=== PATIENT | female | born 1990 | race Caucasian/White ===

== ENCOUNTER → 2024-05-07 | Outpatient (REF) | payer OTHER | LOC: M PLALAB 13:53 | PROVIDERS: ATTEND Obstetrics & Gynecology | DX: Z34.93 Encounter for supervision of normal pregnancy, unspecified, third trimester (principal) ==

== ENCOUNTER → 2024-05-26 | Outpatient (CLI) | payer BC ==
[~2024-05-26] MED LIST: BACT800T5 PO
== END ==
LOC: M RAD 09:18 → MERGE 09:18
PROVIDERS: ATTEND Obstetrics & Gynecology
DX: O26.843 Uterine size-date discrepancy, third trimester (principal)

== ENCOUNTER → 2024-06-09 | Outpatient (REF) | payer BC, OTHER | LOC: M SFHCWAGY 17:15 | PROVIDERS: ATTEND Obstetrics & Gynecology | DX: Z34.83 Encounter for supervision of other normal pregnancy, third trimester (principal) ==

== ENCOUNTER → 2024-06-14 | Outpatient (REF) | payer BC, OTHER | LOC: M SFHCWAGY 17:06 | PROVIDERS: ATTEND Obstetrics & Gynecology | DX: Z36.89 Encounter for other specified antenatal screening (principal); Z3A.36 36 weeks gestation of pregnancy ==

== ENCOUNTER 2024-07-08 14:01 | Emergency (ER) | payer BC ==
[~2024-07-08] VITALS: Ht 172.7 cm; Wt 106.1 kg
[~2024-07-08 14:01] MED LIST changes: +COLA100C5 PO; +IBUP80TA PO; +PERCOCET PO; +PRENTAB53 PO
[2024-07-08 14:57] LABS: BASO % 0.4 % (0.0-1.0); EOS # 0.1 10^3/uL (0.0-0.5); EOS % 1.7 % (0.0-3.0); HEMATOCRIT 31.8 % (36.0-47.0); HEMOGLOBIN 10.6 g/dl (12.0-15.5); LYMPH # 1.3 10^3/uL (1.5-5.0); LYMPH % 17.5 % (24.0-44.0); MEAN CORPUSCULAR HEMOGLOBIN 29.9 pg (27.0-33.0); MEAN CORPUSCULAR HGB CONC 33.3 g/dl (32.0-36.5); MEAN CORPUSCULAR VOLUME 89.6 fl (80.0-96.0); MONO # 0.4 10^3/uL (0.0-0.8); MONO % 5.6 % (2.0-8.0); NEUTROPHILS # 5.6 10^3/uL (1.5-8.5); NEUTROPHILS % 73.1 % (36.0-66.0); PLATELET COUNT, AUTOMATED 256 10^3/uL (150-450); RED BLOOD COUNT 3.55 10^6/uL (4.00-5.40); WHITE BLOOD COUNT 7.6 10^3/uL (4.0-10.0)
[2024-07-08 15:26] LABS: BLOOD UREA NITROGEN 17 MG/DL (9-23); CALCIUM LEVEL 9.1 MG/DL (8.5-10.1); CARBON DIOXIDE LEVEL 24 MMOL/L (20-31); CHLORIDE LEVEL 106 MMOL/L (98-107); CREATININE FOR GFR 0.72 MG/DL (0.55-1.30); GLOMERULAR FILTRATION RATE > 60.0 (>60); GLUCOSE, FASTING 114 MG/DL (60-100); POTASSIUM SERUM 3.8 MMOL/L (3.5-5.1); SODIUM LEVEL 143 MMOL/L (136-145)
[2024-07-08 15:55] LABS: INR 0.94; PARTIAL THROMBOPLASTIN TIME 27.4 SECONDS (24.8-34.2); PROTHROMBIN TIME 12.9 SECONDS (12.5-14.5)
[2024-07-08 18:16] VITALS: O2SAT 100
[2024-07-08 18:25] VITALS: BP 142/82; TEMP 97.8
== END 2024-07-08 18:40 | disposition home or self-care (01) ==
LOC: M ED 14:01
DX: O72.1 Other immediate postpartum hemorrhage (principal); Z79.1 Long term (current) use of non-steroidal anti-inflammatories (NSAID); Z79.810 Long term (current) use of selective estrogen receptor modulators (SERMs); Z79.899 Other long term (current) drug therapy

== ENCOUNTER → 2025-04-01 | Outpatient (REF) | payer OTHER | LOC: M PLALAB 09:01 | PROVIDERS: ATTEND Obstetrics & Gynecology | DX: Z53.9 Procedure and treatment not carried out, unspecified reason (principal) ==

== ENCOUNTER → 2025-04-01 | Outpatient (CLI) | payer BC ==
[2025-04-01 15:42] LABS: PLATELET COUNT, AUTOMATED 249 10^3/uL (150-450)
[2025-04-01 16:23] LABS: HEPATITIS C VIRUS ABY INDEX < 0.02 INDEX (<0.8); HIV 1&2 SCREEN NEGATIVE (NEGATIVE)
[2025-04-01 16:50] LABS: Trichomonas vaginalis (AMP) NOT DETECTED (NEGATIVE)
[2025-04-01 17:14] LABS: GC DNA AMPLIFICATION NEGATIVE (NEGATIVE)
== END ==
LOC: M PLALAB 13:15
PROVIDERS: ATTEND Obstetrics & Gynecology
DX: O09.521 Supervision of elderly multigravida, first trimester (principal); Z3A.00 Weeks of gestation of pregnancy not specified

== ENCOUNTER 2025-05-23 11:40 | Emergency (ER) | payer BC, OTHER ==
[~2025-05-23] VITALS: Ht 172.7 cm; Wt 108.1 kg
[2025-05-23 12:34] LABS: PLATELET COUNT, AUTOMATED 221 10^3/uL (150-450)
[2025-05-23 13:27] LABS: KETONE, URINE AUTO RFX NEGATIVE (NEGATIVE); LEUKOCYTE ESTERASE UR AUTO RFX NEGATIVE (NEGATIVE); NITRITE, URINE AUTO RFX NEGATIVE (NEGATIVE); RBC, URINE AUTO RFX 0 /HPF (0-3); SQUAM EPITHELIAL CELL UR AURFX 3 /HPF (0-6); WBC, URINE AUTO RFX 1 /HPF (0-3)
[2025-05-23 13:41] VITALS: BP 133/79; TEMP 97.2; O2SAT 98
== END 2025-05-23 13:57 | disposition home or self-care (01) ==
LOC: M ED 11:40
DX: O26.852 Spotting complicating pregnancy, second trimester (principal); Z3A.18 18 weeks gestation of pregnancy; Z79.810 Long term (current) use of selective estrogen receptor modulators (SERMs)

== ENCOUNTER → 2025-06-02 | Outpatient (CLI) | payer BC | LOC: M WHC 09:59 | PROVIDERS: ATTEND Obstetrics & Gynecology | DX: O09.512 Supervision of elderly primigravida, second trimester (principal) ==

== ENCOUNTER → 2025-06-10 | Outpatient (REF) | payer BC, OTHER | LOC: M PLALAB 14:15 | PROVIDERS: ATTEND Obstetrics & Gynecology | DX: Z53.9 Procedure and treatment not carried out, unspecified reason (principal) ==

== ENCOUNTER → 2025-06-28 | Outpatient (CLI) | payer BC | LOC: M WHC 08:54 | PROVIDERS: ATTEND Obstetrics & Gynecology | DX: Z34.82 Encounter for supervision of other normal pregnancy, second trimester (principal) ==